=== PATIENT | male | born 2005 | race African-American/Black ===

== ENCOUNTER 2024-01-21 12:09 | Emergency (ER) | payer SELFPAY ==
[2024-01-21 12:16] VITALS: BP 129/51; PULSE 76; RESP 18; TEMP 98.5; BMI 20.2
[2024-01-21] MEDS ORDERED: AMOX TR/POT CLAV 500MG/125MG TABLETS (FP) ONE (12:48)
[2024-01-21] MEDS ORDERED: KETOROLAC TROMETHAMINE 30 MG/1 ML VIAL ONE (12:48)
[2024-01-21] MEDS ORDERED: AMOXICILLIN 250 MG CAPSULE ONE (12:49)
[2024-01-21] MEDS: AMOXICILLIN 500 MG CAPSULE (FP) PO ONE (12:54)
[2024-01-21] MEDS: KETOROLAC TROMETHAMINE 30 MG/1 ML VIAL IM ONE (12:54)
== END 2024-01-21 12:59 | disposition home or self-care (01) ==
LOC: JERFT 12:09
PROC: 3E0133Z Introduction of Anti-inflammatory into Subcutaneous Tissue, Percutaneous Approach (ICD-10-PCS; principal; 2024-01-21)
DX: R68.84 Jaw pain (principal); K02.9 Dental caries, unspecified
CPT/HCPCS: 99284-25